=== PATIENT | female | born 1945 | race Caucasian/White ===

== ENCOUNTER 2023-11-06 12:36 | Outpatient (CLI) | payer MEDICARE, OTHER, SELFPAY ==
--- NOTE | ~2023-11-06 | US_ITS ---
EXAMINATION: US thyroid DATE: 11/06/2023 13:06 INDICATION: Hypothyroidism. TECHNIQUE: Multiple ultrasound images of the thyroid were obtained. COMPARISON: Ultrasound 04/13/2007 FINDINGS: The right thyroid lobe measures 2.0 x 0.9 x 1.0 cm. The left thyroid lobe measures 3.5 x 1.0 x 1.2 c m. In the left thyroid lobe, there is a 1.2 cm solid, isoechoic, wider than tall nodule with smooth margin without echogenic foci (TI-RADS TR3), stable from 04/13/07, likely benign. IMPRESSION: 1. Small thyroid with chronic benign nodule. No follow-up is needed. Reviewed, dictated and finalized at location A.
== END 2023-11-06 12:37 ==
LOC: MICIMG 12:38
PROVIDERS: PCP Internal Medicine; Visit Provider Internal Medicine
DX: E03.9 Hypothyroidism, unspecified (principal); R59.0 Localized enlarged lymph nodes
CPT/HCPCS: 76536

== ENCOUNTER 2024-02-13 10:33 | Outpatient (CLI) | payer MEDICARE, OTHER, SELFPAY ==
--- NOTE | ~2024-02-13 | US_ITS ---
EXAMINATION: US soft tissue head and neck DATE: 02/13/2024 10:52 INDICATION: Localized enlarged lymph nodes. TECHNIQUE: Multiple grayscale and Doppler ultrasound images of the head and neck were obtained. COMPARISON: None FINDINGS: There are normal lymph nodes in the right neck in the patient's area of concern. IMPRESSION: 1. No abnormal lymphadenopathy. Reviewed, dictated and finalized at location A. L BUFFER
== END 2024-02-13 10:34 | disposition home or self-care (01) ==
LOC: MICIMG 10:34
PROVIDERS: PCP Internal Medicine; Visit Provider Internal Medicine
DX: R59.0 Localized enlarged lymph nodes (principal)
CPT/HCPCS: 76536